=== PATIENT | male | born 1965 | race Two or more races ===

== ENCOUNTER 2024-12-13 21:02 | Emergency (ER) | payer MEDICAID, SELFPAY ==
[2024-12-13 21:21] VITALS: BP 124/69; PULSE 105; RESP 18; TEMP 37.2; O2SAT 95
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
[2024-12-13 22:32] VITALS: RESP 18
== END 2024-12-13 22:32 | disposition home or self-care (01) ==
PROVIDERS: Emergency Provider Emergency Medicine; PCP Family Medicine
DX: Z02.89 Encounter for other administrative examinations (principal); E11.65 Type 2 diabetes mellitus with hyperglycemia; F10.10 Alcohol abuse, uncomplicated
CPT/HCPCS: 99282

== ENCOUNTER → 2024-12-17 | Outpatient (CLI) | payer MEDICAID, SELFPAY ==
--- NOTE | 2024-12-17 16:22 | XR_ITS ---
Examination: Lumbar spine 7 views TECHNIQUE: AP, lateral, cone lateral lower lumbar spine, standing lateral flexion, standing nodular extension, RPO and LPO 7 views Date and time: December 17, 2024, 1634 hours INDICATIONS: Low back pain beginning 4 years ago. FINDINGS: Prominent facet arthropathy Grade 1 anterolisthesis of L4 on L5 Diffuse moderate to advanced lumbar degenerative disc disease Prominent lumbar spondylosis IMPRESSION: Diffuse moderate to advanced lumbar degenerative disc disease with significant spinal stenosis
== END | disposition home or self-care (01) ==
PROVIDERS: PCP Physician Assistant; Referring Provider Physician Assistant; Visit Provider Physician Assistant
DX: M51.360 Other intervertebral disc degeneration, lumbar region with discogenic back pain only (principal); M48.061 Spinal stenosis, lumbar region without neurogenic claudication
CPT/HCPCS: 72114